=== PATIENT | female | born 1990 | race Caucasian/White ===

== ENCOUNTER 2020-08-03 23:07 | Emergency (ER) | payer OTHER, SELFPAY ==
[2020-08-03 23:42] VITALS: BP 144/98; PULSE 95; RESP 26; TEMP 36.6; O2SAT 100; BMI 25.6
--- NOTE | 2020-08-03 23:45 | ED_ITS ---
HPI - Extremity Injury (Lower) General Chief Complaint: Extremity Injury, Lower Stated Complaint: Work injury Source: patient Mode of arrival: ambulatory Limitations: no limitations History of Present Illness HPI Narrative: 29-year-old female with no significant past medical history presents with right ankle pain and swelling after a work related injury. States that she rolled her ankle while working. She is having a difficult time ambulating, and has increased pain with flexion of the right foot. She does not describe any other injury at this time. MD complaint: ankle injury and foot injury Onset (ago): hour(s) (Within the hour of arrival) Type of Injury: eversion Place: work Severity: moderate Severity scale (1-10): 7 Relieving factors: nothing Exacerbating factors: weight bearing, movement and palpation Associated symptoms: swelling and able to partially bear weight Other symptoms: none Treatments prior to arrival: cold therapy Related Data Previous Rx's Medication Instructions Recorded oxycodone 5 mg PO Q6H PRN #14 tab 08/04/20 Allergies Allergy/AdvReac Type Severity Reaction Status Date / Time lorazepam [From ATIVAN] AdvReac Intermediate BEHAVIORAL/ Unverified 03/21/20 16:58 VIOLENT Review of Systems Review of Systems: Constitutional: No Fever, No Chills ENT/Mouth: No Ear Pain, No Hoarseness, No sore throat Eyes: No Eye Pain, No Swelling, No Redness, No Foreign Body Cardiovascular: No Chest Pain, No SOB Respiratory: No Cough, No Dyspnea Gastrointestinal: No Nausea, No Vomiting, No Diarrhea, No abdominal Pain Genitourinary: No Dysuria, No Hematuria Musculoskeletal: positive right ankle and foot pain, No Myalgias, No Joint Swelling Skin: No Skin lacerations, No rash Neuro: No Weakness, No Numbness, No Paresthesias, No Loss of Consciousness, No Dizziness, No Headache Psych: No Anxiety/Panic, No Depression Heme/Lymph: no easy bruising, no Lymphadenopathy Endocrine: No Polyuria, No Polydipsia Yes all other systems are reviewed and are negative [facility] Past Medical History Attestation statement: The following information was validated with the patient. Source: old records reviewed Medical History Anxiety Social History Social History Advance Directives: No Physical Exam Vital Signs: Vital Signs: Last Vital Signs Temp 97.9 F 08/03/20 23:42 Pulse 95 08/03/20 23:42 Resp 26 H 08/03/20 23:42 BP 144/98 H 08/03/20 23:42 Pulse Ox 100 08/03/20 23:42 Body Mass Index 25.6 Appearance: Alert. Oriented X3. No acute distress. Eyes: Pupils equal, round and reactive to light. ENT: Pharynx normal. Neck: Normal inspection. Neck supple. CVS: Normal heart rate and rhythm. Pulses normal. Respiratory: No respiratory distress. Breath sounds normal. Abdomen: Soft and nontender. Skin: Skin warm and dry. Normal skin color. Normal skin turgor. Extremities: Positive pain on flexion, extension, palpation, internal and external rotation of the right ankle. Visible swelling noted. Positive pedal pulses equal to bilateral lower extremities. No lower extremity edema. Neuro: No motor deficit. No sensory deficit. Course Course Course Narrative: 29-year-old female with no significant past medical history presents with right ankle and foot pain after a work related injury. There is visible swelling, tenderness to palpation, and pain on flexion extension internal and external rotation. Plan of care is for x-rays, Tylenol and Motrin. X-ray suspicious for calcaneus fracture, boot, crutches and nonweightbearing. Patient knows to follow up with Orthopedics on Wednesday morning. Patient verbalized understanding of and agrees to plan of care to discharge home. MDM - Extremity Injury (Lower) Differential Diagnosis Differential diagnosis: Likely ankle sprain and strain and ankle fracture Medical Records Attestation: I reviewed the patient's medical records. Lab Data Attestation: I reviewed the patient's lab results. Labs: Lab Results 08/04/20 Range/Units 00:06 Urine Test NEGATIVE (NEGATIVE) Imaging Data Right ankle x-ray: Attestation: I personally reviewed and interpreted this imaging study as follows: Radiologist's impression: EXAMINATION: XR ANKLE, RIGHT CLINICAL INFORMATION: Swelling and pain after work injury COMPARISON: 12/28/2006 TECHNIQUE: AP, lateral, and mortise views of the right ankle. FINDINGS: On the lateral view there is lucency through the anterior process of the calcaneus which appears new compared to the remote prior exam. There is associated soft tissue swelling of the proximal foot. Articular alignment across the ankle is anatomic. The distal tibia and fibula appear intact. XR/XR ankle RT min 3V IMPRESSION: Lucency through the anterior process of the calcaneus with associated soft tissue swelling, suspicious for fracture in the setting of trauma. Discharge Plan Discharge Clinical Impression: Calcaneus fracture, right Qualifiers: Encounter type: initial encounter Calcaneus location: unspecified portion of calcaneus Fracture type: closed Fracture alignment: nondisplaced Qualified Code(s): S92.001A - Unspecified fracture of right calcaneus, initial encounter for closed fracture Patient Disposition: Home, Self-Care Instructions: Crutch Instructions (ED), Calcaneal Fracture (ED) Additional Instructions: You were evaluated for right foot pain after a work related injury. X-rays indicate swelling and a suspected calcaneus fracture. Please keep good place until we see Orthopedics. Do not bear weight, use crutches for all ambulation. We prescribed oxycodone for pain management. Medication is narcotic and has high risk for addiction and abuse. Do not drive or operate machinery while taking this medication. This medication can cause constipation, increased risk for falls, cause drowsiness, and decreased coordination. Drink plenty of fluids, consider using MiraLax and her Colace to help soften stools. Thank you for choosing this emergency department for evaluation. Please follow-up with primary care physician as needed. Return to the emergency department for any new, concerning, or worsening symptoms. Prescriptions: New oxycodone 5 mg tablet 5 mg PO Q6H PRN (Reason: pain) Qty: 14 RF: 0 Referrals: Ligia Steele PA-C [Physician Brickmason Supervisor] - 2 days (Suspected right calcaneus fracture)
[2020-08-04 00:16] LABS: UPreg QC Valid YES; Urine Pregnancy NEGATIVE (NEGATIVE)
[2020-08-04] MEDS: Acetaminophen 325 MG TABLET 650 MG PO (00:36)
[2020-08-04] MEDS: Ibuprofen 600 MG TABLET PO (00:36)
== END 2020-08-04 01:38 | disposition home or self-care (01) ==
PROVIDERS: Nurse Practitioner Family; Emergency Provider Internal Medicine; PCP Internal Medicine
DX: S92.024A Nondisplaced fracture of anterior process of right calcaneus, initial encounter for closed fracture (principal); X50.1XXA Overexertion from prolonged static or awkward postures, initial encounter; Y93.89 Activity, other specified; Y92.9 Unspecified place or not applicable; Y99.0 Civilian activity done for income or pay
CPT/HCPCS: 73610; 81025; 99283; 99284

== ENCOUNTER → 2020-08-09 10:53 | Outpatient (BNVA) | payer OTHER, SELFPAY | PROVIDERS: PCP Internal Medicine; Visit Provider Physician Assistant | DX: S92.001A Unspecified fracture of right calcaneus, initial encounter for closed fracture (principal) | CPT/HCPCS: 99202 ==

== ENCOUNTER → 2020-08-23 10:58 | Outpatient (BNVA) | payer OTHER, SELFPAY | PROVIDERS: PCP Internal Medicine; Visit Provider Physician Assistant Medical | DX: S92.001D Unspecified fracture of right calcaneus, subsequent encounter for fracture with routine healing (principal); S52.021D Displaced fracture of olecranon process without intraarticular extension of right ulna, subsequent encounter for closed fracture with routine healing; W18.31XD Fall on same level due to stepping on an object, subsequent encounter | CPT/HCPCS: 99203 ==

== ENCOUNTER 2020-08-23 18:00 | Emergency (ER) | payer SELFPAY | END 2020-08-23 19:55 | disposition left against medical advice (07) | PROVIDERS: Emergency Provider Emergency Medicine; PCP Internal Medicine | DX: R11.10 Vomiting, unspecified (principal) | CPT/HCPCS: 99281 ==

== ENCOUNTER 2020-10-11 08:36 | Outpatient (REF) | payer SELFPAY ==
--- NOTE | ~2020-10-11 | XR_ITS ---
EXAMINATION: XR ANKLE, RIGHT CLINICAL INFORMATION: Fracture of right calcaneus COMPARISON: 08/04/2020 TECHNIQUE: AP, lateral, and mortise views of the right ankle. FINDINGS: Fracture of the anterior process of the calcaneus is again noted. There is sclerotic margin along the fracture, a change from prior. Cannot verify osseous bridging. The subtalar joints are well aligned. The soft tissues are unremarkable. No ankle joint effusion. The ankle mortise is congruent.. XR/XR ankle RT min 3V IMPRESSION: Fracture of the anterior process of the calcaneus appears to still be fragmented with some sclerosis along the margins.
== END 2020-10-11 08:37 | disposition home or self-care (01) ==
LOC: HO.HOSX 08:36
PROVIDERS: Visit Provider Physician Assistant
DX: S92.001A Unspecified fracture of right calcaneus, initial encounter for closed fracture (principal)
CPT/HCPCS: 73610

== ENCOUNTER 2020-11-06 10:19 | Outpatient (REF) | payer OTHER, SELFPAY ==
--- NOTE | ~2020-11-06 | MR_ITS ---
EXAMINATION: MRI ANKLE WITHOUT CONTRAST, RIGHT CLINICAL INFORMATION: Unspecified fracture of right calcaneus. History of calcaneal fracture. Anterior ankle pain. COMPARISON: Radiographs dated 10/11/2020. TECHNIQUE: Multiplanar MR imaging was obtained to the right ankle without contrast material on a 1.5 [place] magnet. FINDINGS: ACHILLES TENDON: Normal. OTHER TENDONS: Intact. LIGAMENTS: Intact. BONE AND ARTICULAR CARTILAGE: There is a fracture at the dorsal margin of the anterior process of the calcaneus which is chronic in nature with relative hypertrophy of the distal fragment and subchondral sclerosis along the margins with the remainder of the calcaneus. There is underlying subcortical edema in this region. This fracture line was evident on the prior MRI from thousand 7, though the distal fragment has hypertrophied since that time. A recurrent fracture in this region is possible, though felt to be less likely. No new fractures are identified. Marrow signal otherwise normal. Talocrural joint appears well preserved without osteochondral injuries. JOINT FLUID AND SOFT TISSUES: No joint effusion. Minimal subcutaneous edema at the posteromedial and posterolateral aspects of the ankle. No fluid collections. PLANTAR FASCIA: Normal. SINUS TARSI AND TARSAL TUNNEL: Normal. MR/MR ankle RT wo con IMPRESSION: Chronic fracture of the dorsal margin of the anterior process of the calcaneus. There is mild edema signal along the margins which may be due to a component of chronic instability/degeneration at the pseudarthrosis or a recurrent injury. A repeat fracture at the same location as in 2007 is possible, though felt to be less likely.
== END 2020-11-06 10:20 | disposition home or self-care (01) ==
LOC: HO.MRI 10:19
PROVIDERS: Visit Provider Physician Assistant
DX: S92.001A Unspecified fracture of right calcaneus, initial encounter for closed fracture (principal)
CPT/HCPCS: 73721

== ENCOUNTER → 2020-11-15 10:57 | Outpatient (BNVA) | payer OTHER, SELFPAY | PROVIDERS: PCP Internal Medicine; Visit Provider Physician Assistant ==

== ENCOUNTER 2020-12-27 10:00 | Outpatient (RCR) | payer OTHER, SELFPAY ==
--- NOTE | 2020-10-18 08:30 | MHC.PT.EP ---
[facility] [place] Office [place] Office [place] Office [address] Vanessa Akhtar [address] [phone] F: [phone] F: [phone] F: [phone] F: [phone] Physical Therapy Plan of Care Date of Evaluation: 10/18/20 Date of Surgery: NA Diagnosis: unilateral primary OA, right knee PAT Assessment: The patient has decreased ankle DF AROM and strength, ankle inversion motion due to pain and apprehension and decreased ankle stability noted with single leg stance and balance activities. 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 She was educated about improving footwear for work and exercise. Frequency and Duration: The patient will be seen 1x/week x 4 weeks Short Term Goals: 1. pt to be able to do all functional movements such as squatting, bending, and reaching overhead with good balance and motor control.. 2. Pt to be able to walk with a heel to toe reciprocal gait pattern with adequate toe clearance. Still Photographer Goals: 1. Pt to be able to do dynamic movement without pain limitation including bending squatting, pushing a cart, pulling to show improved tolerance to work duties. 2. Pt to be able to balance SLS on one foot to show improved ankle stability. Treatment Plan: Modalities to reduce pain, spasms and effusion. Manual therapy to restore motion and function. Therapeutic exercise to improve strength and flexibility. Neuromuscular re-education for posture and balance. Therapeutic activities to return to functional activities of daily living. Electronically signed by: Nkechi Lipscomb PT DPT Please sign and return to therapist. Thank you for your referral.
--- NOTE | 2020-12-27 11:17 | MHC.PT.RE ---
[facility] [place] Office [place] Office [place] Office [address] Vanessa Akhtar [address] [phone] F: [phone] F: [phone] F: [phone] F: [phone] Physical Therapy Re-evaluation Diagnosis: unilateral primary OA, right knee PAT Date of Surgery: NA Date of Evaluation: 10/18/20 Treatments to Date: 4 Cancellations to Date: No Shows to Date: Subjective: Pt was wearing sneakers today. Pt reports it hurts going down stairs. I am so out of shape I am still on light duty but I feel I am ready to return to normal duty. Pain Score: 3 Pain Location: lateral foot Objective Measures: right ankle DF AROM 0-8 PROM 0-13 MMT DF 5/5, PF 4/5, inversion 5/5, eversion 4+/5 on right ankle functional: pt can step down a 8 inch step with control - pt can perform lateral movements, squat, bend, lunge with good function. Assessment: Pt feels an improvement in activity tolerance. I feel I am ready to return to work normal duty. She was able to do lateral movements, squat, bend, and go down a normal height step with good control. She still has some lateral foot pain and decreased symmetrical activity tolerance with warrants further therapy for ankle strengthening and proprioception as well as to learn a general strength program for LE. Short Term Goals: 1. pt to be able to do all functional movements such as squatting, bending, and reaching overhead with good balance and motor control. ( goal met) 2. Pt to be able to walk with a heel to toe reciprocal gait pattern with adequate toe clearance. ( goal met) Custodial Goals: 1. Pt to be able to do dynamic movement without pain limitation including bending squatting, pushing a cart, pulling to show improved tolerance to work duties. ( goal met) 2. Pt to be able to balance SLS on one foot to show improved ankle stability. (ongoing) 3. Pt to return to normal recreational activities such as quick lateral movements, bounding, running without pain. Frequency and Duration: The patient will be seen 1x/week x 4 more weeks. Treatment Plan: Therapeutic Exercise Dynamic Therapeutic Activities Neuromuscular Re-ed Manual Therapies Home Exercise Program Patient Education Hot or Cold Pack ankle stability, sls activities Reviewed/ Agreed with Student Documentation: Therapist: Electronically signed by: Nkechi Lipscomb PT DPT Please sign and return to therapist. Thank you for your referral.
== END 2021-02-03 09:00 | disposition home or self-care (01) ==
LOC: HO.PT 10:00
PROVIDERS: Visit Provider Physician Assistant
DX: S92.001A Unspecified fracture of right calcaneus, initial encounter for closed fracture (principal)
CPT/HCPCS: 97110; 97112; 97140; 97162; 97530; 97535

== ENCOUNTER 2021-02-07 14:40 | Outpatient (REF) | payer OTHER, SELFPAY ==
[2021-02-07 16:29] LABS: MANUAL DIFF FLAG NO
[2021-02-07 16:31] LABS: Basophils Percent Auto 0.3 % (0-2); Eosinophils Absolute Auto 0.2 X10*3/uL (0.0-0.4); Eosinophils Percent Auto 2.8 % (0-4); Hematocrit 38.9 % (37-47); Hemoglobin 13.1 g/dl (12.0-16.0); Imm Gran Abs Auto 0.01 X10*3/uL (0.00-0.03); Imm Gran Pct Auto 0.1 % (0.0-0.4); Lymphocytes Absolute Auto 2.1 X10*3/uL (1.2-4.9); Lymphocytes Percent Auto 26.3 % (20-40); Mean Corpuscular HGB Conc 33.7 g/dl (31.0-35.0); Mean Corpuscular Hemoglobin 30.9 pg (27.0-33.0); Mean Corpuscular Volume 91.7 fL (80-98); Mean Platelet Volume 10.9 fL (9.4-12.3); Monocytes Absolute Auto 0.5 X10*3/uL (0.1-1.2); Monocytes Percent Auto 6.5 % (2-11); Neutrophils Absolute Auto 5.1 X10*3/uL (2.0-8.3); Platelet Count 322 X10*3/uL (160-400); Red Blood Count 4.24 X10*6/uL (4.20-5.50); Red Cell Distribution Width 12.2 % (11.0-16.0); White Blood Count 7.9 X10*3/uL (4.8-10.8)
[2021-02-07 16:42] LABS: Alanine Aminotransferase 11 U/L (0-31); Albumin Level 4.7 g/dL (3.5-5.0); Alkaline Phosphatase 55 U/L (39-117); Anion Gap 12 (12-20); Aspartate Amino Transferase 14 U/L (5-31); Bilirubin Total 1.1 mg/dL (0.0-1.0); Blood Urea Nitrogen 15 mg/dL (9-16); Calcium 9.5 mg/dL (8.4-10.2); Carbon Dioxide 25 mmol/L (22-29); Chloride 106 mmol/L (96-108); Cholesterol 174 mg/dL; Estimated Glomerular Filt Rate > 60; Glucose Random 105 mg/dL (60-115); HDL Cholesterol 49 mg/dL; LDL Cholesterol Calculated 90 mg/dl; Potassium 4.5 mmol/L (3.3-5.1); Sodium 138 mmol/L (135-145); Total Protein 7.4 g/dL (6.5-8.0); Triglycerides 178 mg/dL
[2021-02-07 17:02] LABS: TSH reflex Free T4 1.81 uIU/mL (0.32-4.0)
[2021-02-07 17:07] LABS: Vitamin B12 256 pg/mL (200-900)
[2021-02-15 14:46] LABS: Vitamin D 25-OH, D2 <4 ng/mL; Vitamin D 25-OH, D3 32 ng/mL; Vitamin D 25-OH, Total 32 ng/mL (30-100)
== END 2021-02-07 14:41 | disposition home or self-care (01) ==
LOC: HO.HMGCLDS 14:40
PROVIDERS: PCP Internal Medicine; Visit Provider Internal Medicine
DX: Z00.01 Encounter for general adult medical examination with abnormal findings (principal); F41.9 Anxiety disorder, unspecified
CPT/HCPCS: 36415; 80053; 80061; 82306; 82607; 84443; 85025

== ENCOUNTER 2021-03-05 09:51 | Outpatient (REF) | payer OTHER, SELFPAY ==
[2021-03-06 02:38] LABS: CT PCR NOT DETECTED (Not Detect.); NG PCR NOT DETECTED (Not Detect.)
== END 2021-03-05 09:52 | disposition home or self-care (01) ==
LOC: HO.LAB 09:51
PROVIDERS: PCP Internal Medicine; Visit Provider Advanced Practice Midwife
DX: Z01.419 Encounter for gynecological examination (general) (routine) without abnormal findings (principal); Z11.3 Encounter for screening for infections with a predominantly sexual mode of transmission; Z20.2 Contact with and (suspected) exposure to infections with a predominantly sexual mode of transmission; Z72.0 Tobacco use
CPT/HCPCS: 87491; 87591; 88142

== ENCOUNTER → 2021-07-10 11:45 | Outpatient (BNVA) | payer OTHER, SELFPAY | PROVIDERS: PCP Internal Medicine; Visit Provider Advanced Practice Midwife ==

== ENCOUNTER 2022-08-26 10:11 | Outpatient (REF) | payer OTHER, SELFPAY ==
[2022-08-27 13:21] LABS: CT PCR NOT DETECTED (Not Detect.); NG PCR NOT DETECTED (Not Detect.)
[2022-08-29 06:43] LABS: HPV mRNA E6/E7 rflx Not Detected (Not Detected)
== END 2022-08-26 10:12 | disposition home or self-care (01) ==
LOC: HO.LNP 10:11
PROVIDERS: PCP Internal Medicine; Visit Provider Advanced Practice Midwife
DX: Z01.419 Encounter for gynecological examination (general) (routine) without abnormal findings (principal); Z11.51 Encounter for screening for human papillomavirus (HPV); Z20.2 Contact with and (suspected) exposure to infections with a predominantly sexual mode of transmission
CPT/HCPCS: 0353U; 87624; 88142

== ENCOUNTER 2023-08-31 10:31 | Outpatient (AMB) | payer OTHER, SELFPAY ==
[2023-08-31 10:36] VITALS: BP 110/62; BMI 26.7
--- NOTE | 2023-08-31 10:36 | A.OFFVIS_ITS ---
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 Doing well with no concerns. She tries to eat healthy and stays active with walking at work. Regular monthly menses q 5-6wks. Currently is not sexually active. She denies vaginal itching and irritation. STI screening offered; she declines. Denies family history of breast, ovarian or colon cancer. Last pap smear 2021, negative. PFSH Medical History Smoking Alcohol use Anxiety Surgical History H/O foot surgery History of tonsillectomy Hx of cholecystectomy Family History Mother No problems noted. 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 Sexual orientation: Straight/Heterosexual Gender identity: Female Cognitive needs: No Hearing needs: No Vision needs: Yes Female Reproductive History Menstrual Age of Menarche: 15 Duration of menses: 3-5 days Date of last menstrual period: 08/15/23 control method: none Total pregnancies: 2 Number of Living Children: 0 Date of last pap smear: 08/26/22 History of abnormal pap smear: No History of STI: No Review of Systems Const All systems reviewed & are unremarkable except as noted in HPI and below Reports as per HPI Eyes Reports no additional complaints ENT Reports no additional complaints Card Reports no additional complaints Resp Reports no additional complaints GI Reports as per HPI and Reports no additional complaints Reports as per HPI Musc Reports no additional complaints Skin/Breast Reports as per HPI Neuro Reports no additional complaints Psych Reports no additional complaints Endo Reports no additional complaints Yuval/Lymph Reports no additional complaints Aller/Immun Reports no additional complaints Physical Exam Vital Signs: Last Vital Signs BP 110/62 08/31/23 10:36 BMI result Body Mass Index 26.7 Const General: cooperative, healthy appearing, no acute distress, well developed and alert Orientation/consciousness: patient oriented x3 HEENT Head: Yes normal to inspection Eyes General: appearance normal, both eyes and all related structures Neck Neck: Yes normal visual inspection Thyroid: Thyroid normal Chest Chest palpation & inspection: normal inspection of the chest and other (no puckering, dimpling, peau de orange, retraction, discharge, masses) Breast/axilla inspection: normal inspection of the breasts Breast/axilla palpation: normal palpation of the breasts Resp Effort & Inspection: normal respiratory effort GI Inspection: Yes normal to inspection Palpation (GI): Soft to palpation Rectal Exam - Female: deferred General: Yes bladder normal to palpation External Female Exam: normal external appearance and normal appearance of the urethra Speculum Exam - Vagina: normal appearance of the vagina, normal palpation and normal vaginal discharge Speculum Exam - Cervix: normal appearance of the cervix and normal palpation Bimanual exam- vagina & uterus: normal bimanual exam, normal palpation, uterine size normal, bladder normal to palpation, normal palpation and non-tender Bimanual Exam- Adnexa, other: no masses Skin General skin exam: no rashes or lesions noted Rashes: no rashes Neuro General: patient oriented x3 Cognition (Neuro): normal cognition Extrem General: Yes normal to inspection Psych Attitude: cooperative Thought process: Normal thought process present Assessment & Plan Assessment & Plan (1) Encounter for well woman exam with routine gynecological exam: Code(s): Z01.419 - Encounter for gynecological examination (general) (routine) without abnormal findings Plan Discussed: Current recommendations for pap smears per ASCCP guidelines. Breast awareness and periodic breast exams. Maintain a healthy lifestyle including a well balanced diet and routine exercise. Use condoms for STI and prevention. Patient verbalizes understanding and agrees to the plan of care. She was given opportunity to ask questions and all questions were answered to the best of my ability. RTO in one year for annual environmental protection specialist examination. This note is constructed using voice recognition software. While every effort has been made to ensure accuracy, welder boilermaker errors may have been included. Coding Level of Care Code Est Pt Prev Care 18-39y(89632) Diagnoses Encounter for well woman exam with routine gynecological exam Z01.419
== END 2023-08-31 10:58 | disposition home or self-care (01) ==
LOC: HO.HWS 10:32
PROVIDERS: PCP Internal Medicine; Visit Provider Advanced Practice Midwife
DX: Z01.419 Encounter for gynecological examination (general) (routine) without abnormal findings (principal)
CPT/HCPCS: 99395

== ENCOUNTER → 2023-08-31 10:31 | Outpatient (BNVA) | payer OTHER, SELFPAY | PROVIDERS: PCP Internal Medicine; Visit Provider Advanced Practice Midwife ==

== ENCOUNTER 2023-12-17 08:21 | Outpatient (AMB) | payer OTHER, SELFPAY ==
--- NOTE | 2023-12-17 08:22 | MHC.PC.OV ---
Vital Signs 12/17/23 08:25 Height 5 ft 2 in Weight 148 lb BMI 27.1 BP 120/78 Blood Pressure Location Rt brachial Position Sitting Pulse 87 Pulse Source Pulse Oximeter Pulse Oximetry (%) 98 Oxygen Delivery Method Room Air Intake Visit Reasons: PE Allergies lorazepam [From [facility]IVAN] Adverse Reaction (Intermediate, Verified 12/17/23 08:25) BEHAVIORAL/VIOLENT Medication List - Last Reconciled 12/17/23 by Diane Bell MD bupropion HCl XL 300 mg PO DAILY quetiapine 100 mg PO BEDTIME Tobacco use date assessed: 12/17/23 Dental Screening Dental Screen Date: 12/17/23 Did you have a dental visit in the last 12 months?: Yes Did you have a dental problem in the last 6 months where you did not have access to dental care?: No Was dental information given to patient?: Patient has dentist HPI PE HPI Details Patient is a 33-year-old female this is a physical exam Patient is already established with OBGYN breast exam and Pap smear through them at [facility] last visit was early this year She is also seeing psychiatrist and a nurse practitioner who is prescribing her psychiatric medications Patient is on Seroquel and Wellbutrin She has taking no medication from this office Patient have a history of cholecystectomy, she has developed diarrhea after that Patient says that every time she eats something she feels as if she has to go. Also having some bloating symptoms I am prescribing cholestyramine, patient is to get back to me in couple of weeks to update me how she is doing on this medication. She also need a referral to Dermatology for skin cancer screening Lab order placed to be done fasting today [facility] Medical History Smoking Alcohol use Anxiety Surgical History H/O foot surgery History of tonsillectomy Hx of cholecystectomy Family History Mother No problems noted. 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 1. Little interest or pleasure in doing things: not at all 2. Feeling down, depressed, or hopeless: not at all 3. Trouble falling or staying asleep, or sleeping too much: not at all 4. Feeling tired or having little energy: not at all 5. Poor appetite or overeating: not at all 6. Feeling bad about yourself - or that you are a failure or have let yourself or your family down: not at all 7. Trouble concentrating on things, such as reading the newspaper or watching television: not at all 8. Moving or speaking so slowly that other people could have noticed. Or the opposite - being so fidgety or restless that you have been moving around a lot more than usual: not at all 9. Thoughts that you would be better off or of hurting yourself in some way: not at all Total score: 0 Depression Screening Interpretation: Negative Depression Screening Done: Yes 76979 - PHQ-9 Billing: Yes Source: Developed by Drs. Tacos Huston, Fabiana Tee, Leland López and colleagues, with an educational augusta from [employer]. Thrive Questionnaire Date Thrive assessed: 12/17/23 I am a: Patient What is your living situation today?: I have a steady place to live Within the past 12 months, did the food you bought not last and you didn't have the money to get more?: Never true Within the past 12 months, did you worry whether your food would run out before you got money to buy more?: Never true Do you have trouble paying for medicines?: No Do you have trouble getting transportation to medical appointments?: No Do you have trouble paying your heating and electricity bill?: No Do you have trouble taking care of your child, family member or friend?: No Do you have trouble with day-to-day activities such as bathing, preparing meals, shopping, managing finances, etc.?: No Are you currently unemployed and looking for a job?: No Are you interested in more education?: Yes Currently or been in a relationship where the following occur: I choose not to answer this question THRIVE Score: 0 AUDIT C Alcohol Use Questionnaire (AUDIT-C) 1. How often do you have a drink containing alcohol?: Never 3. How often do you have six or more drinks on one occasion?: Never Total Score: 0 Score Reviewed/Action Taken: No ALEXANDRO-7 AMB Questionnaire ALEXANDRO-7 Date ALEXANDRO - 7 assessed: 12/17/23 Feeling nervous, anxious, or on edge: 0 = Not at all Not being able to stop or control worryin = Not at all Worrying too much about different things: 0 = Not at all Trouble relaxin = Not at all Being so restless that it is hard to sit still: 0 = Not at all Becoming easily annoyed or irritable: 1 = Several days Feeling afraid as if something awful might happen: 1 = Several days Total ALEXANDRO-7 score (0-4 normal; 5-9 mild; 10-14 moderate; 15-21 severe): 2 Source: Developed by Drs. Tacos Huston, Fabiana Tee, Leland López and colleagues, with an educational augusta from [employer]. ALEXANDRO-7 Assessment Billing ALEXANDRO-7 Assessment Tool: ALEXANDRO-7 Assessment 63372 Review of Systems Const Denies chills, Denies fever(s) and Denies headache(s) Eyes Denies blurry vision ENT Denies headache(s), Denies nasal discharge, Denies nasal obstruction, Denies odynophagia and Denies sinus pain Card Denies chest pain at rest and Denies chest pain with activity Resp Denies cough and Denies hemoptysis GI Denies odynophagia, Denies vomiting and Denies hematemesis Reports as per HPI Musc Denies abnormal gait Skin/Breast Reports as per HPI Neuro Denies Neuro-related abnormal movements, Denies Abnormal speech present, Denies abnormal gait, Denies headache(s) and Denies Sensory deficit (Neuro) Psych Denies mood swings and Denies paranoia Endo Reports as per HPI Yuval/Lymph Reports as per HPI Aller/Immun Reports as per HPI Physical exam (Primary Care) Vital Signs: Last Vital Signs Pulse 87 12/17/23 08:25 BP 120/78 12/17/23 08:25 Pulse Ox 98 12/17/23 08:25 Oxygen Delivery Method Room Air 12/17/23 08:25 BMI result Body Mass Index 27.1 Tobacco/Smoking Status: Tobacco use Status Tobacco use date assessed 12/17/23 12/17/23 08:27 Patient Tobacco Use Status Former Tobacco user 12/17/23 08:24 Tobacco use type Cigarette 12/17/23 08:24 e-Cigarette/Vaping Use Currently Using 12/17/23 08:24 Depression Screening Interpretation: Negative Thrive Assessment: Date of Thrive Assessment Date Thrive assessed 09/01/22 12/17/23 08:24 Currently or been in a relationship where the following occur: I choose not to answer this question Const General: cooperative, comfortable and no acute distress Orientation/consciousness: patient oriented x3 HENMT Head: Yes normocephalic and Yes atraumatic Eyes General: appearance normal, both eyes and all related structures Pupils: Equal, round and reactive pupils present EOM: EOMs intact bilaterally Neck Neck: Yes supple and No lymphadenopathy Thyroid: Thyroid normal Lymphatic: no lymphadenopathy noted Resp Effort & Inspection: normal respiratory effort and able to speak in complete sentences Auscultation: clear to auscultation bilaterally Cardio Heart sounds: S1 normal heart sound present and S2 normal heart sound present GI Palpation (GI): Soft to palpation and nontender Auscultation: normal bowel sounds General: Yes no CVA tenderness Back/Spine/Pelvis Back: no CVA tenderness Skin General skin exam: elasticity normal and turgor normal Neuro General: patient oriented x3 and gait normal Cranial nerves: Yes Equal, round and reactive pupils present Speech: No Abnormal speech present Sensory Exam: No Sensory deficit (Neuro) Coordination: tandem gait normal and Romberg test negative Extrem General: Yes normal exam except as noted and No edema Assessment and Plan Assessment & Plan (1) Encounter for general adult medical examination with abnormal findings: Code(s): Z00.01 - Encounter for general adult medical examination with abnormal findings (2) Severe anxiety: Code(s): F41.9 - Anxiety disorder, unspecified (3) Chronic diarrhea: Code(s): K52.9 - Noninfective gastroenteritis and colitis, unspecified (4) Hx of cholecystectomy: Code(s): Z90.49 - Acquired absence of other specified parts of digestive tract (5) Bloating: Code(s): R14.0 - Abdominal distension (gaseous) Plan Patient is a 33-year-old female this is a physical exam Patient is already established with OBGYN breast exam and Pap smear through them at [facility] last visit was early this year She is also seeing psychiatrist and a nurse practitioner who is prescribing her psychiatric medications Patient is on Seroquel and Wellbutrin She has taking no medication from this office Patient have a history of cholecystectomy, she has developed diarrhea after that Patient says that every time she eats something she feels as if she has to go. Also having some bloating symptoms I am prescribing cholestyramine, patient is to get back to me in couple of weeks to update me how she is doing on this medication. She also need a referral to Dermatology for skin cancer screening Lab order placed to be done fasting today Orders: Orders Complete Blood Count Auto Diff Today F17.200 - Nicotine dependence, unspecified, uncomplicated, F41.9 - Anxiety disorder, unspecified, Z00.01 - Encounter for general adult medical examination with abnormal findings Comprehensive [place]. Panel Fast Today F17.200 - Nicotine dependence, unspecified, uncomplicated, F41.9 - Anxiety disorder, unspecified, Z00.01 - Encounter for general adult medical examination with abnormal findings TSH reflex Free T4 Today F17.200 - Nicotine dependence, unspecified, uncomplicated, F41.9 - Anxiety disorder, unspecified, Z00.01 - Encounter for general adult medical examination with abnormal findings Lipid Panel Today F17.200 - Nicotine dependence, unspecified, uncomplicated, F41.9 - Anxiety disorder, unspecified, Z00.01 - Encounter for general adult medical examination with abnormal findings Referrals Dermatology Referral Z12.83 - Encounter for screening for malignant neoplasm of skin Medications: New cholestyramine (with sugar) 4 gram administer w/meal; avoid other meds within 1hr before or 4-6hr after dose 4 grams PO BID 348.6 grams 0RF Coding Level of Care Code Est Pt Level 3 (79867) Est Pt Prev Care 18-39y(55645) Diagnoses Encounter for general adult medical examination with abnormal findings Z00.01 Severe anxiety F41.9 Chronic diarrhea K52.9 Hx of cholecystectomy Z90.49 Bloating R14.0 Additional Codes ALEXANDRO-7 Assessment Billing - ALEXANDRO-7 Assessment Tool: ALEXANDRO-7 Assessment 92288 ([id number])
[2023-12-17 08:25] VITALS: BP 120/78; PULSE 87; O2SAT 98; BMI 27.1
== END 2023-12-17 08:44 | disposition home or self-care (01) ==
PROVIDERS: PCP Internal Medicine; Visit Provider Internal Medicine
DX: Z00.01 Encounter for general adult medical examination with abnormal findings (principal); F41.9 Anxiety disorder, unspecified; K52.9 Noninfective gastroenteritis and colitis, unspecified; Z90.49 Acquired absence of other specified parts of digestive tract; R14.0 Abdominal distension (gaseous)
CPT/HCPCS: 99213; 99395

== ENCOUNTER 2023-12-17 08:45 | Outpatient (REF) | payer OTHER, SELFPAY ==
[2023-12-17 10:22] LABS: MANUAL DIFF FLAG NO
[2023-12-17 10:34] LABS: Basophils Percent Auto 0.4 % (0-2); Eosinophils Absolute Auto 0.1 X10*3/uL (0.0-0.4); Eosinophils Percent Auto 1.7 % (0-4); Hematocrit 34.7 % (37.0-47.0); Hemoglobin 11.7 g/dl (12.0-16.0); Imm Gran Abs Auto 0.03 X10*3/uL (0.00-0.03); Imm Gran Pct Auto 0.4 % (0.0-0.4); Lymphocytes Absolute Auto 2.1 X10*3/uL (1.2-4.9); Lymphocytes Percent Auto 27.4 % (20-40); Mean Corpuscular HGB Conc 33.7 g/dl (31.0-35.0); Mean Corpuscular Hemoglobin 30.4 pg (27.0-33.0); Mean Corpuscular Volume 90.1 fL (80.0-98.0); Mean Platelet Volume 10.5 fL (9.4-12.3); Monocytes Absolute Auto 0.6 X10*3/uL (0.1-1.2); Monocytes Percent Auto 7.8 % (2-11); Neutrophils Absolute Auto 4.8 x10*3/uL (2.0-8.3); Neutrophils Percent Auto 62.3 % (45-73); Platelet Count 291 X10*3/uL (160-400); Red Blood Count 3.85 X10*6/uL (4.20-5.50); Red Cell Distribution Width 13.2 % (11.0-16.0); White Blood Count 7.7 X10*3/uL (4.8-10.8)
[2023-12-17 11:22] LABS: Alanine Aminotransferase 18 U/L (0-31); Albumin Level 4.3 g/dL (3.5-5.0); Alkaline Phosphatase 58 U/L (39-117); Anion Gap 14 (12-20); Aspartate Amino Transferase 12 U/L (5-31); Bilirubin Total 0.3 mg/dL (0.0-1.0); Blood Urea Nitrogen 16 mg/dL (9-16); Calcium 9.8 mg/dL (8.4-10.2); Carbon Dioxide 24 mmol/L (22-29); Chloride 106 mmol/L (96-108); Cholesterol 176 mg/dL (<200); Estimated Glomerular Filt Rate > 60; Glucose Fasting 92 mg/dL (60-99); HDL Cholesterol 56 mg/dL (>40); LDL Cholesterol Calculated 86 mg/dL (<100); Potassium 3.6 mmol/L (3.3-5.1); Sodium 140 mmol/L (135-145); Total Protein 7.2 g/dL (6.5-8.0); Triglycerides 173 mg/dL (<150)
== END 2023-12-17 08:46 | disposition home or self-care (01) ==
LOC: HO.HMGCLDS 08:45
PROVIDERS: PCP Internal Medicine; Visit Provider Internal Medicine
DX: Z00.01 Encounter for general adult medical examination with abnormal findings (principal); F41.9 Anxiety disorder, unspecified; F17.200 Nicotine dependence, unspecified, uncomplicated
CPT/HCPCS: 36415; 80053; 80061; 84443; 85025

== ENCOUNTER 2024-08-03 08:30 | Outpatient (AMB) | payer OTHER, SELFPAY ==
--- NOTE | 2024-08-03 09:17 | A.OFFPC_ITS ---
Intake Visit Reasons: Gastroenterology Referral Allergies lorazepam [From [facility]] Adverse Reaction (Intermediate, Verified 08/03/24 09:17) BEHAVIORAL/VIOLENT Medication List - Last Reconciled 08/03/24 by Diane Bell MD bupropion HCl XL 300 mg PO DAILY cholestyramine (with sugar) 4 gram 4 grams PO BID quetiapine 100 mg PO BEDTIME Tobacco use date assessed: 08/03/24 Dental Screening Dental Screen Date: 08/03/24 Did you have a dental visit in the last 12 months?: Yes Did you have a dental problem in the last 6 months where you did not have access to dental care?: No Was dental information given to patient?: Patient has dentist HPI Gastroenterology Referral HPI Details History - The patient is a 33-year-old female pr esenting for a referral to a gastrointestinal specialist due to her ongoing management of diverticulitis. - She recently experienced a flare-up ch aracterized by left abdominal pain, fevers, and chills, leading to an emergency room visit. - Treatment in the ER included a prescri ption for Augmentin, which she completed over ten days, resulting in symptom improvement. - To help prevent further episodes, she is modifying her diet according to given dietary recommendations. - She seeks a referral for further evalu ation and possible procedures including colonoscopy and endoscopy at [facility]. - The patient also has a history of depr ession and is currently on Bupropion 300 mg under the care of a psychiatrist. Problem List - Diverticulitis - Depression Patient Instructions - Follow the current dietary recommendat ions provided to manage diverticulitis symptoms. - Continue taking Bupropion as prescribe d. - Maintain regular follow-up appointment s with your psychiatrist. - Await the referral to the gastrointest inal specialist for further evaluation and necessary procedures. Review of Systems - Gastrointestinal: Reports left abdomin al pain, fevers, and chills associated with diverticulitis episode. - General: No fever no chills - Neurological: No headaches no dizziness - Ear nose throat: No sore throat no hearing difficulty no ear pain - Cardiovascular: No syncope, no chest pain, no palpitations - Endocrine: No polyuria polydipsia no heat intolerance - Genitourinary: No dysuria , no blood in urine PFSH Medical History Smoking Alcohol use Anxiety Surgical History H/O foot surgery History of tonsillectomy Hx of cholecystectomy Family History Mother No problems noted. 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 How often do you have a drink containing alcohol?: Never 3. How often do you have six or more drinks on one occasion?: Never Total Score: 0 Score Reviewed/Action Taken: Yes ALEXANDRO-7 AMB Questionnaire ALEXANDRO-7 Date ALEXANDRO - 7 assessed: 12/17/23 Source: Developed by Drs. Tacos Huston, Fabiana Tee, Leland López and colleagues, with an educational augusta from [employer]. Physical exam (Primary Care) Tobacco/Smoking Status: Tobacco use Status Tobacco use date assessed 08/03/24 08/03/24 09:18 Patient Tobacco Use Status Former Tobacco user 08/03/24 09:18 Tobacco use type Cigarette 08/03/24 09:18 e-Cigarette/Vaping Use Currently Using 08/03/24 09:18 Thrive Assessment: Date of Thrive Assessment Date Thrive assessed 12/17/23 08/03/24 09:18 Telehealth Telehealth Telehealth Platform: [facility] Location of provider rendering services: practice address Location of patient: address on file Patient Identification confirmed using: Name, : Yes Telehealth method: voice only Patient verbally consented to treatment: Yes Patient verbally consented to billing insurance company: Yes Patient informed of any privacy concerns related to visit: Yes Minutes spent on Phone/Video with Pt.: 13 Coding Level of Care Code Tele Est Pt Level 3 (49384) Diagnoses Diverticulitis K57.92 Assessment & Plan Assessment & Plan (1) Diverticulitis: Code(s): K57.92 - Diverticulitis of intestine, part unspecified, without perforation or abscess without bleeding Category: Medical Plan History - The patient is a 31-year-old female presenting with management of chronic sinus and migraine headaches. - There is a history of nasal congestion improving with Montelukast. - The patient has been offered allergen immunotherapy but expressed concerns about worsening symptoms, although reassured regarding its process and benefits. - Reports history of migraine headaches, often triggered by sinus congestion, with current headache attributed to sinus factors primarily. Problem List - Sinus Headache - Migraine Headache - Nasal Congestion - Asthma - Allergic Rhinitis Patient Instructions - Continue Montelukast as prescribed for nasal congestion relief. - Understand that allergy shots involve gradual introduction of allergens, aiming to build immunity, not to worsen symptoms. - Allergy shots are adjustable and can be discontinued if necessary.. - Monitor headache occurrences, and note any potential sinus congestion co ntributing to headache episodes. - Contact healthcare provider if symptoms do not improve or if there are concerns regarding treatment. Orders: Referrals Gastroenterology Referral K57.92 - Diverticulitis of intestine, part unspecified, without perforation or abscess without bleeding
== END 2024-08-03 10:11 | disposition home or self-care (01) ==
LOC: HO.HMCC 08:30
PROVIDERS: PCP Internal Medicine; Visit Provider Internal Medicine
DX: K57.92 Diverticulitis of intestine, part unspecified, without perforation or abscess without bleeding (principal)

== ENCOUNTER → 2024-08-03 08:30 | Outpatient (BNVA) | payer OTHER, SELFPAY | PROVIDERS: PCP Internal Medicine; Visit Provider Internal Medicine ==

== ENCOUNTER 2025-01-16 12:46 | Outpatient (AMB) | payer OTHER, SELFPAY ==
--- NOTE | 2025-01-16 12:48 | A.OFFPC_ITS ---
Vital Signs 01/16/25 12:49 Height 5 ft 2 in Weight 140 lb BMI 25.6 BP 116/70 Blood Pressure Location Rt brachial Position Sitting Respiration 18 Pulse 75 Pulse Source Pulse Oximeter Temp 99.2 F Temp Source Oral Pulse Oximetry (%) 98 Oxygen Delivery Method Room Air Intake Visit Reasons: Annual PE-Reschedule Allergies lorazepam (From [facility]) Adverse Reaction (Intermediate, Verified 01/16/25 12:50) BEHAVIORAL/VIOLENT Medication List - Last Reconciled 01/16/25 by Diane Bell MD quetiapine 25 mg PO BEDTIME sertraline 25 mg PO QPM Tobacco use date assessed: 01/16/25 Dental Screening Dental Screen Date: 08/03/24 HPI Annual PE-Reschedule HPI Details - The patient is a 34-year-old female pr esenting with a request for a physical examination and management of ongoing health issues. - Anxiety: The patient experiences anxie ty, managed with sertraline and quetiapine. The patient reports that the role at work exacerbates her mental health challenges. Currently seeing psychiatrist - Diverticulitis: The patient has a hist ory of diverticulitis diagnosed after experiencing stomach pain and visiting the ER for a CT scan. Recurrent flare-ups have been noted. A colonoscopy was recommended. She was referred to [facility] in July of this year but patient did not pursue that. However now she is interested and would like to go to [facility] - Anemia: In December 2021, laboratory resul ts indicated mild anemia with hemoglobin at 11.7 g/dL. Need repeat labs - Shoulder Pain and upper back pain: The patient reports persistent shoulder pain lately, especially in the right shoulder, associated with large breast size, leading to the consideration of breast reduction surgery. - Breast Hypertrophy: The patient is con sidering breast reduction surgery due to discomfort from heavy breasts, including shoulder pain, posture issues (slouching), and a prior episode of a rash beneath the breasts. - Persistent shoulder pain associated wi th large breast size. 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 - Vaping is noted, although not as frequ ently as previous cigarette use. - Not currently in a relationship for ov er four years, recently started a new relationship. - No current alcohol consumption is repo rted. Health Maintenance - Recent labs in December 2021 showed mild a nemia (hemoglobin 11.7 g/dL). - Recommendations for regular laboratory checks - Required colonoscopy due to diverticul itis history. - Vaccinations up to date, with tetanus administered in 2017. [place] of Care - Patient is associated with [facility] for mental health management. - Sees a therapist and nurse mouna victor who manage her psychiatric medications. - No recent OBGYN appointment attended; next appointment scheduled for August year. Medications - Sertraline for anxiety. - Quetiapine for anxiety. 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 Diagnostic results - Labs (December 2021): Hemoglobin 11.7 g/dL indicating mild anemia, with normal thyroid, cholesterol, liver enzymes, kidney function, and electrolytes. Patient Instructions - Contact gastroenterology for a colonos copy appointment. - Follow-up with the plastic surgery [place] about breast reduction surgery candidacy. - Complete the ordered fasting labs at [facility]. - Maintain adherence to prescribed medic ations for anxiety. Review of Systems - General: No fever no chills - Neurological: No headaches no dizzin ess - Ear nose throat: No sore throat no hearing difficulty no ear pain - Cardiovascular: No syncope, no chest pain, no palpitations - Gastrointestinal: No nausea vomiting or diarrhea - Endocrine: No polyuria polydipsia no heat intolerance - Genitourinary: No dysuria - Skin: No new complaints Physical Exam General: Cooperative, healthy appearing, comfortable, no acute distress Orientation: Patient oriented x3 Head: Normal to inspection Ears: Within normal limit visually Nose: Normal external nose present Face and sinus: Normal facial exam Eyes: Appearance normal, extraocular movement intact pupils reactive Neck: Normal visual inspection and supple Respiratory: Normal respiratory effort and able to speak in complete sentences. Clear to auscultation, no stridor. Reports shortness of breath, possibly related to smoking and anxiety. Cardiovascular: S1 and S2 RRR Breast exam benign GI: Normal to inspection. Soft to palpation and nontender. Skin: Turgor normal, no acute findings. Reports past rash and skin tags, with dermatology appointment scheduled. Neuro: Patient oriented x3, motor sensory intact, balance intact, tandem pass Extremities: Normal to inspection [facility] Medical History Smoking Alcohol use Anxiety Surgical History H/O foot surgery History of tonsillectomy Hx of cholecystectomy Family History Mother No problems noted. 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 1. Little interest or pleasure in doing things: not at all 2. Feeling down, depressed, or hopeless: not at all 3. Trouble falling or staying asleep, or sleeping too much: not at all 4. Feeling tired or having little energy: several days 5. Poor appetite or overeating: several days 6. Feeling bad about yourself - or that you are a failure or have let yourself or your family down: not at all 7. Trouble concentrating on things, such as reading the newspaper or watching television: not at all 8. Moving or speaking so slowly that other people could have noticed. Or the opposite - being so fidgety or restless that you have been moving around a lot more than usual: not at all 9. Thoughts that you would be better off or of hurting yourself in some way: not at all Total score: 2 Depression Screening Interpretation: Negative Depression Screening Done: Yes 53820 - PHQ-9 Billing: Yes Source: Developed by Drs. Tacos Huston, Fabiana Tee, Leland López and colleagues, with an educational augusta from [employer]. Thrive Questionnaire Date Thrive assessed: 01/16/25 I am a: Patient What is your living situation today?: I have a steady place to live Within the past 12 months, did the food you bought not last and you didn't have the money to get more?: Never true Within the past 12 months, did you worry whether your food would run out before you got money to buy more?: Never true Do you have trouble paying for medicines?: No Do you have trouble getting transportation to medical appointments?: No Do you have trouble paying your heating and electricity bill?: No Do you have trouble taking care of your child, family member or friend?: No Do you have trouble with day-to-day activities such as bathing, preparing meals, shopping, managing finances, etc.?: No Are you currently unemployed and looking for a job?: No Are you interested in more education?: Yes Please select the resources that you would like help with: None Currently or been in a relationship where the following occur: No concerns reported THRIVE Score: 0 ALEXANDRO-7 AMB Questionnaire ALEXANDRO-7 Date ALEXANDRO - 7 assessed: 01/16/25 Feeling nervous, anxious, or on edge: 0 = Not at all Not being able to stop or control worryin = Not at all Worrying too much about different things: 0 = Not at all Trouble relaxin = Not at all Being so restless that it is hard to sit still: 0 = Not at all Becoming easily annoyed or irritable: 0 = Not at all Feeling afraid as if something awful might happen: 0 = Not at all Total ALEXANDRO-7 score (0-4 normal; 5-9 mild; 10-14 moderate; 15-21 severe): 0 Source: Developed by Drs. Tacos Huston, Fabiana Tee, Leland López and colleagues, with an educational augusta from [employer]. Physical exam (Primary Care) Vital Signs: Last Vital Signs Temp 99.2 F 01/16/25 12:49 Pulse 75 01/16/25 12:49 Resp 18 01/16/25 12:49 BP 116/70 01/16/25 12:49 Pulse Ox 98 01/16/25 12:49 Oxygen Delivery Method Room Air 01/16/25 12:49 BMI result Body Mass Index 25.6 Tobacco/Smoking Status: Tobacco use Status Tobacco use date assessed 01/16/25 01/16/25 12:54 Patient Tobacco Use Status Former Tobacco user 01/16/25 12:54 Tobacco use type Cigarette 01/16/25 12:54 e-Cigarette/Vaping Use Currently Using 01/16/25 12:54 PHQ-9: PHQ-9 Score PHQ-9: Total score 2 01/16/25 12:54 Depression Screening Interpretation: Negative Thrive Assessment: Date of Thrive Assessment Date Thrive assessed 01/16/25 01/16/25 12:54 Currently or been in a relationship where the following occur: No concerns reported Coding Level of Care Code Est Pt Level 3 (95816) Est Pt Prev Care 18-39y(00982) Diagnoses Encounter for general adult medical examination with abnormal findings Z00.01 Recurrent major depressive disorder, in partial remission F33.41 Active/Remission status: in partial remission Severe anxiety F41.9 Diverticulosis K57.90 Gynecomastia, female N62 Upper back pain M54.9 Chronic right shoulder pain M25.511; G89.29 Chronicity: chronic Additional Codes PHQ-9 - 70697 - PHQ-9 Billing: Yes ([id number]) Assessment & Plan Assessment & Plan (1) Encounter for general adult medical examination with abnormal findings: Code(s): Z00.01 - Encounter for general adult medical examination with abnormal findings Category: Medical (2) Major depression, recurrent: Code(s): F33.9 - Major depressive disorder, recurrent, unspecified Category: Medical Qualifiers: Active/Remission status: in partial remission Qualified Code(s): F33.41 - Major depressive disorder, recurrent, in partial remission (3) Severe anxiety: Code(s): F41.9 - Anxiety disorder, unspecified Category: Medical (4) Diverticulosis: Code(s): K57.90 - Diverticulosis of intestine, part unspecified, without perforation or abscess without bleeding Category: Medical (5) Gynecomastia, female: Code(s): N62 - Hypertrophy of breast Category: Medical (6) Upper back pain: Code(s): M54.9 - Dorsalgia, unspecified Category: Medical (7) Right shoulder pain: Code(s): M25.511 - Pain in right shoulder Category: Medical Qualifiers: Chronicity: chronic Qualified Code(s): M25.511 - Pain in right shoulder; G89.29 - Other chronic pain Plan - The patient is a 34-year-old female presenting with a request for a physical examination and management of ongoing health issues. - Anxiety: The patient experiences anxiety, managed with sertraline and quetiapine. The patient reports that the role at work exacerbates her mental health challenges. Currently seeing psychiatrist - Diverticulitis: The patient has a history of diverticulitis diagnosed after experiencing stomach pain and visiting the ER for a CT scan. Recurrent flare-ups have been noted. A colonoscopy was recommended. She was referred to [facility] in July of this year but patient did not pursue that. However now she is interested and would like to go to [facility] - Anemia: In December 2021, laboratory results indicated mild anemia with hemoglobin at 11.7 g/dL. Need repeat labs - Shoulder Pain and upper back pain: The patient reports persistent shoulder pain lately, especially in the right shoulder, associated with large breast size, leading to the consideration of breast reduction surgery. - Breast Hypertrophy: The patient is considering breast reduction surgery due to discomfort from heavy breasts, including shoulder pain, posture issues (slouching), and a prior episode of a rash beneath the breasts. - Persistent shoulder pain associated with large breast size. 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 - Vaping is noted, although not as frequently as previous cigarette use. - Not currently in a relationship for over four years, recently started a new relationship. - No current alcohol consumption is reported. Health Maintenance - Recent labs in December 2021 showed mild anemia (hemoglobin 11.7 g/dL). - Recommendations for regular laboratory checks - Required colonoscopy due to diverticulitis history. - Vaccinations up to date, with tetanus administered in 2017. [place] of Care - Patient is associated with [facility] for mental health management. - Sees a therapist and nurse practitioner who manage her psychiatric medications. - No recent OBGYN appointment attended; next appointment scheduled for August next year. Medications - Sertraline for anxiety. - Quetiapine for anxiety. 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 Diagnostic results - Labs (December 2021): Hemoglobin 11.7 g/dL indicating mild anemia, with normal thyroid, cholesterol, liver enzymes, kidney function, and electrolytes. Patient Instructions - Contact gastroenterology for a colonoscopy appointment. - Follow-up with the plastic surgery office about breast reduction surgery candidacy. - Complete the ordered fasting labs at convenience. - Maintain adherence to prescribed medications for anxiety. Orders: Orders TSH reflex Free T4 Today F33.9 - Major depressive disorder, recurrent, unspecified, F41.9 - Anxiety disorder, unspecified, K57.90 - Diverticulosis of intestine, part unspecified, without perforation or abscess without bleeding, Z00.01 - Encounter for general adult medical examination with abnormal findings Vitamin D 25-OH (D2 and D3) Today F33.9 - Major depressive disorder, recurrent, unspecified, F41.9 - Anxiety disorder, unspecified, K57.90 - Diverticulosis of intestine, part unspecified, without perforation or abscess without bleeding, Z00.01 - Encounter for general adult medical examination with abnormal findings Complete Blood Count Auto Diff Today F33.9 - Major depressive disorder, recurrent, unspecified, F41.9 - Anxiety disorder, unspecified, K57.90 - Diverticulosis of intestine, part unspecified, without perforation or abscess without bleeding, Z00.01 - Encounter for general adult medical examination with abnormal findings Comprehensive [place]. Panel Fast Today F33.9 - Major depressive disorder, recurrent, unspecified, F41.9 - Anxiety disorder, unspecified, K57.90 - Diverticulosis of intestine, part unspecified, without perforation or abscess without bleeding, Z00.01 - Encounter for general adult medical examination with abnormal findings Lipid Panel Today F33.9 - Major depressive disorder, recurrent, unspecified, F41.9 - Anxiety disorder, unspecified, K57.90 - Diverticulosis of intestine, part unspecified, without perforation or abscess without bleeding, Z00.01 - Encounter for general adult medical examination with abnormal findings Vitamin B12 Today F33.9 - Major depressive disorder, recurrent, unspecified, F41.9 - Anxiety disorder, unspecified, K57.90 - Diverticulosis of intestine, part unspecified, without perforation or abscess without bleeding, Z00.01 - Encounter for general adult medical examination with abnormal findings Ferritin Today F33.9 - Major depressive disorder, recurrent, unspecified, F41.9 - Anxiety disorder, unspecified, K57.90 - Diverticulosis of intestine, part unspecified, without perforation or abscess without bleeding, Z00.01 - Encounter for general adult medical examination with abnormal findings Referrals Plastic Surgery Referral M54.9 - Dorsalgia, unspecified, N62 - Hypertrophy of breast
[2025-01-16 12:49] VITALS: BP 116/70; PULSE 75; RESP 18; TEMP 37.3; O2SAT 98; BMI 25.6
== END 2025-01-16 14:18 | disposition home or self-care (01) ==
LOC: HO.HMCC 12:47
PROVIDERS: PCP Internal Medicine; Visit Provider Internal Medicine
DX: Z00.01 Encounter for general adult medical examination with abnormal findings (principal); N62 Hypertrophy of breast; M54.9 Dorsalgia, unspecified; M25.511 Pain in right shoulder; F33.41 Major depressive disorder, recurrent, in partial remission; F41.9 Anxiety disorder, unspecified; K57.90 Diverticulosis of intestine, part unspecified, without perforation or abscess without bleeding; G89.29 Other chronic pain

== ENCOUNTER → 2025-01-16 12:46 | Outpatient (BNVA) | payer OTHER, SELFPAY | PROVIDERS: PCP Internal Medicine; Visit Provider Internal Medicine | DX: Z00.01 Encounter for general adult medical examination with abnormal findings (principal); F34.1 Dysthymic disorder; F41.9 Anxiety disorder, unspecified; M25.511 Pain in right shoulder; M54.9 Dorsalgia, unspecified; N62 Hypertrophy of breast; K57.90 Diverticulosis of intestine, part unspecified, without perforation or abscess without bleeding; G89.29 Other chronic pain | CPT/HCPCS: 96127 ==